=== PATIENT | male | born 1990 | race Caucasian/White ===

== ENCOUNTER 2017-05-30 06:04 | Emergency (ER) | payer BC, OTHER ==
[~2017-05-30] VITALS: Ht 177.8 cm; Wt 70.0 kg
[~2017-05-30 06:04] MED LIST: AUGM875 PO; Z.0.NO CURRENT MEDS
[2017-05-30 06:16] VITALS: BP 134/82; PULSE 90; RESP 18; TEMP 98.5; O2SAT 98
--- NOTE | 2017-05-30 06:21 | PD ---
HPI Chief Complaint: Alan act Time Seen by Provider: 06:17 Travel History International Travel<30 days: No Contact w/Intl Traveler<30days: No Traveled to known affect area: No History of Present Illness HPI 27-year-old white male presents to emergency department under Alan act by PD. The patient had sent suicidal text messages to his ex-girlfriend. The patient states that he had just recently found out that his ex-girlfriend was hooking up with another scotty. This made him jealous. He had sent text messages suicidal nature to his ex-girlfriend in hopes to get sympathy from her and somehow get back together. The patient admits to drinking alcohol earlier. He denies any drugs. He denies any toxic ingestions. He denies any actions of self-harm. No recent illness. PFSH Past Medical History Medical History: Denies Significant Hx Tetanus Vaccination: < 5 Years Past Surgical History Surgical History: No Previous Surgery Social History Alcohol Use: Yes Tobacco Use: No Substance Use: No Allergies-Medications (Allergen,Severity, Reaction): Coded Allergies: Sulfa (Verified Allergy, Severe, BODY RASH, 11/01/07) Reported Meds & Prescriptions Reported Meds & Active Scripts Active Augmentin (Amoxicillin/Clavulanate Potassium) 875 Mg Tab 875 Mg PO BID Reported No Current Meds (Miscellaneous Medication) Misc Review of Systems Except as stated in HPI: all other systems reviewed are Neg Psychiatric: Positive: Suicidal Ideations, Mood Disorder, No: Anxiety, Depression, Disorder of Thought, Substance Abuse, Homicidal Ideation Physical Exam Narrative GENERAL: Well-nourished, well-developed patient. SKIN: Warm and dry. HEAD: Normocephalic and atraumatic. EYES: No scleral icterus. No injection or drainage. ENT: No nasal drainage noted. Mucous membranes pink. Airway patent. NECK: Supple, trachea midline. Moves head freely without obvious discomfort. CARDIOVASCULAR: Regular rate and rhythm without murmurs, gallops, or rubs. RESPIRATORY: Breath sounds equal bilaterally. No accessory muscle use. GASTROINTESTINAL: Abdomen soft, non-tender, nondistended. EXTREMITIES: No cyanosis or edema. BACK: Nontender without obvious deformity. No CVA tenderness. NEURO: Patient is alert and oriented. no sensorimotor deficits. Nonfocal. Normal speech. PSYCH: No delusions. No auditory or visual hallucinations. Data Data Orders Complete Blood Count With Diff (05/30/17 06:15) Comprehensive Metabolic Panel (05/30/17 06:15) Psych Screen (05/30/17 06:15) Drug Screen, Random Urine (05/30/17 06:15) Alcohol (Ethanol) (05/30/17 06:15) Salicylates (Aspirin) (05/30/17 06:15) Tylenol (Acetaminophen) (05/30/17 06:15) MDM Medical Decision Making Medical Screen Exam Complete: Yes Emergency Medical Condition: Yes Medical Record Reviewed: Yes Differential Diagnosis MDM: High Differential diagnoses: Schizophrenia, schizoaffective disorder, bipolar, anxiety, depression, adjustment reaction, mood disorder NOS, ODD, depressive disorder NOS, dementia, dementia with agitation, psychosis NOS, substance induced mood disorder, intermittent explosive disorder, Asperger syndrome, infection,electrolyte abnormality, malingering. Narrative Course Mental health screening discussed with the patient. Psychiatric screen ordered. The patient has been medically cleared. This is medical clearance for psychiatric admission, adjustment reaction Diagnosis Primary Impression: Medical clearance for psychiatric admission Additional Impression: Adjustment reaction Qualified Code: F43.21 - Adjustment disorder with depressed mood Condition: Stable Moiz Rolon May 30, 2017 06:21
[2017-05-30 06:49] LABS: AUTOMATED NEUTROPHIL # 4.9 TH/MM3 (1.8-7.7); BASOPHIL % 0.6 % (0.0-2.0); EOSINOPHIL % 0.5 % (0.0-4.0); HEMATOCRIT 43.5 % (39.0-51.0); HEMO FLAGS DIFF FINAL; LYMPH % 19.3 % (9.0-44.0); LYMPHOCYTE # 1.3 TH/MM3 (1.0-4.8); MEAN CELL VOLUME 88.4 FL (80.0-100.0); MEAN CORPUSCULAR HGB CONC 35.1 % (32.0-36.0); MONO % 6.5 % (0.0-8.0); NEUT % 73.1 % (16.0-70.0); PLATELET COUNT 277 TH/MM3 (150-450); RED BLOOD COUNT 4.92 MIL/MM3 (4.50-5.90); RED CELL DISTRIBUTION WIDTH 13.2 % (11.6-17.2); WHITE BLOOD COUNT 6.8 TH/MM3 (4.0-11.0)
[2017-05-30 07:12] LABS: ANION GAP 7 MEQ/L (5-15); AST (GOT) 22 U/L (15-37); BICARBONATE 27.1 MEQ/L (21.0-32.0); BLOOD UREA NITROGEN 7 MG/DL (7-18); CHLORIDE 108 MEQ/L (98-107); GLOMERULAR FILTRATION RATE 90 ML/MIN (>89); POTASSIUM 4.6 MEQ/L (3.5-5.1); SODIUM (NA) 142 MEQ/L (136-145)
[2017-05-30 07:15] LABS: ALKALINE PHOSPHATASE 56 U/L (45-117); ALT (GPT) 29 U/L (12-78); TOTAL BILIRUBIN ADULT 0.6 MG/DL (0.2-1.0)
[2017-05-30 07:18] LABS: ACETAMINOPHEN LESS THAN 2.0 MCG/ML (10.0-30.0)
[2017-05-30 07:20] LABS: AMPHETAMINE, URINE NEG (NEG); BARBITURATES, URINE NEG (NEG); COCAINE, URINE NEG (NEG)
== END 2017-05-30 12:43 | disposition home or self-care (01) ==
LOC: NEPD 06:04
DX: F43.21 Adjustment disorder with depressed mood (principal)
CPT/HCPCS: 80053; 80307; 85025; 99284